=== PATIENT | male | born 1990 | race Two or more races ===

== ENCOUNTER 2023-05-20 13:32 | Emergency (ER) | payer BC ==
[~2023-05-20] VITALS: Ht 188 cm; Wt 109.8 kg
[2023-05-20 13:42] VITALS: O2SAT 99
[2023-05-20 15:43] LABS: BASOPHILS % 0.7 % (0.0-2.0); EOSINOPHILS % 0.1 % (0.0-5.0); HEMATOCRIT. 40.3 % (42.0-52.0); LYMPHOCYTES % 11.2 % (20.0-50.0); MEAN CORPUSCULAR HGB CONC 34.6 g/dL (31.0-37.0); MEAN CORPUSCULAR VOLUME 95.2 fL (80.0-94.0); MEAN PLATELET VOLUME 9.2 fl (7.4-10.4); MONOCYTES % 13.9 % (2.0-8.0); NEUTROPHILS % 74.1 % (40.0-76.0); PLATELET 228 x1000/uL (130-400); RED BLOOD CELL COUNT 4.23 mill/uL (4.7-6.1); RED CELL DISTRIBUTION WIDTH 12.7 % (11.6-14.6); WHITE BLOOD COUNT 6.8 x1000/uL (4.5-11.0)
[2023-05-20 15:55] LABS: ALANINE AMINOTRANSFERASE 54 IU/L (10-49); ALBUMIN 4.2 g/dL (3.2-4.8); ASPARTATE AMINOTRANSFERASE 40 IU/L (<34); BILIRUBIN TOTAL 0.5 mg/dL (0.1-1.0); CARBON DIOXIDE 23 mEq/L (21-32); CHLORIDE 103 mEq/L (98-107); CREATININE 1.2 mg/dL (0.6-1.3); GLUCOSE 85 mg/dL (70-105); POTASSIUM 3.5 mEq/L (3.5-5.1); PROTEIN TOTAL 7.7 g/dL (6.0-8.3); SODIUM 136 mEq/L (136-145); UREA NITROGEN BLOOD 10 mg/dL (9-23)
[2023-05-20 16:15] VITALS: BP 129/82; PULSE 99; RESP 16; TEMP 102.9
[2023-05-20] MEDS ORDERED: IBUPROFEN 400MG TABLET PO ONE (16:15)
[2023-05-20] MEDS ORDERED: ACETAMINOPHEN 325MG TABLET PO ONE (16:15)
[2023-05-20] MEDS ORDERED: ONDANSETRON 4MG ODT PO ONE (16:15)
[2023-05-20] MEDS ORDERED: IBUP-2028 MT (19:23)
[2023-05-20] MEDS ORDERED: ONDA4TAB11 PO (19:23)
== END 2023-05-20 19:32 | disposition home or self-care (01) ==
LOC: ER 14:03
DX: R19.7 Diarrhea, unspecified (principal); R50.9 Fever, unspecified; R11.10 Vomiting, unspecified; Z20.822 Contact with and (suspected) exposure to COVID-19
CPT/HCPCS: 99284; 71045; 87426; 80053; 83690; 85025; 36415; Q0162